=== PATIENT | female | born 1985 | race Caucasian/White ===

== ENCOUNTER 2021-12-27 06:47 | Day surgery (SDC) | payer OTHER, SELFPAY ==
[2021-12-24 13:48] LABS: Hematocrit 36.1 % (37-47); Hemoglobin 12.6 g/dL (12.0-15.0); Mean Corp Hgb Conc 34.9 g/dL (32-36); Mean Corpuscular Hgb 31.9 pg (27.0-32.0); Mean Corpuscular Volume 91.4 fL (81-99); Platelet Count 317 K/mm3 (150-450); RBC Distribution Width CV 12.2 % (11.6-14.6); RBC Distribution Width SD 41.1 fl (35.1-43.9); Red Blood Count 3.95 M/mm3 (4.2-5.4); White Blood Count 7.8 K/mm3 (4.4-11.0)
[2021-12-27] VITALS (8 sets, daily range): BP systolic 105–113; BP diastolic 65–71; PULSE 62–77; RESP 16–18; TEMP 36.1–37.2; O2SAT 94–100; BMI 32.5
[2021-12-27 07:22] LABS: Internal QC Validated? YES +Cl - CLEAR BKGD; Pregnancy, Urine Negative Negative
[2021-12-27] MEDS: Lactated Ringers 1,000 ML 15 ML IV (07:32)
--- NOTE | 2021-12-27 08:13 | PCM.PN.BLA ---
Progress Note I have re-examined the patient. There are no clinical changes since date of exam.
--- NOTE | 2021-12-27 08:30 | EMB_PTH ---
PATIENT: NU MORALES LOC[place] [facility] [place][id number] AGE/SX: 36/F ROOM: RE12/27/[address]: Dr. Cristina Koroma, MDDOB: 1985 BED: DIS: 12/27/2021 SPEC #: [id number] RECD: 12/27/21 12:25 STATUS: CECILIA NOEMI #: [id number] KAYLIE: 12/27/21 08:[address]: Cristina Koroma DEPT: SURGICAL PATHOLOGY RECD BY: Carmelita Ventura ENTERED: 12/27/21 13:15 SP TYPE: ENDOM BX/C TERRA DR: Dr. Kinsey Toribio, DO Tissues: Endometrium, NOS Procedures: Surgery Specimen Level IV HEADER OPERATION: Hysteroscopy, D & C Symphion, polypectomy PRE-OP DIAGNOSIS: Abnormal uterine bleeding, uterine polyp TISSUE SUBMITTED: Endometrial curettings and polyps MICROSCOPIC DIAGNOSIS Endometrial curettings and polyps: Secretory endometrium with glandular-stromal breakdown. Fragments of benign myometrium. AM/am 12/28/21 MICROSCOPIC DESCRIPTION Slides are reviewed. GROSS DESCRIPTION Received in formalin is one container labeled with the patient name and designated endometrial curettings and polyps. The specimen consists of multiple irregular fragments of light tavares soft tissue that in aggregate measure 5.5 x 3 x 0.2 cm. The specimen is totally submitted in two cassettes. / AM:toby 12/28/21 TC:5 CPT: 41879
--- NOTE | 2021-12-27 08:55 | PCM.OPRPT ---
Problems Associated Problem List Diagnoses (1) Abnormal uterine bleeding (AUB): (2) Endometrial polyp: Report of Operation Date of Procedure: 12/27/21 Pre-Operative Diagnosis: aub,endometrial polyp Post-Operative Diagnosis: same Surgery/Procedure Performed:: hysteroscopy, D&C, polypectomy Description of Surgical Findings:: Thickened endometrial tissue present. Polyp noted at the fundal aspect of the endometrium. Surgeon: Cristina Koroma processing technologist: None Type of Anesthesia: MAC Special Medications: none Specimen's removed: endometrial curettings, endometrial polyp Drains: none Estimated Blood Loss (mL): <5 Fluids Replaced: 400 Description of Procedure: informed consent was obtained the patient was taken the operating room she was placed in supine position. She was given anesthesia. She was then placed in the [facility] where she was prepped and draped in the normal sterile fashion. At this time the weighted speculum was placed in the posterior fornix of vagina. Single-tooth tenaculum was used to gently grasp the anterior lip the cervix. At this time the uterine cavity was sounded to approximately 9 cm. Gentle dilatation was performed once adequate dilatation of the cervix was achieved the hysteroscope using normal saline as a distention medium was placed. Thickened endometrial tissue appreciated, fundal polyp noted, tubal ostia visualized. Symphion resecting device used to obtain endometrial curettings and to perform polypectomy. Once completed the cavity appeared normal and cavity sanchez were intact. Tissue will be sent to pathology for evaluation. Tenaculum removed. Good hemostasis. Instrument, lap count correct x 2. Vaginal Sweep was negative. Procedure Start Time: 08:40 Procedure Stop Time: 08:54 Complications none Admit VTE Documentation VTE Present on Admission: Yes VTE Mechan Device Prophylaxis: SCD's VTE Pharm Prophylaxis ordered?: No Reason prophylaxis not ordered:: Procedure Not Indicated
--- NOTE | 2021-12-27 08:58 | EX.PCM.DISCH ---
Discharge Instructions Procedure D&C Diet Discharge Diet: No restrictions Activity May resume sexual activity in: 1 week Dressing / Incision Call your doctor if you observe: Fever of 101 or Higher, Inability to urinate, Using more than 1 pad per hour and Uncontrolled pain Follow Up Care Please Follow Up With: Cristina Koroma MD When: 1-2 weeks post OP if you need an appointment please call [phone] Test Results: Test results from this visit will be discussed in further detail at your follow-up appointment, if applicable. Discharge Plan Admission Attending Provider: Cristina Koroma Primary Care Provider: Kinsey Toribio Discharge Orders/Prescriptions Prescriptions: No Action NK RF: 0
[2021-12-27] MEDS: Ipratropium/Albuterol Sulfate 3 ML AMPUL.NEB INHALATION (09:50)
== END 2021-12-27 23:59 | disposition home or self-care (01) ==
LOC: SDC 06:49 → AC 06:49
PROVIDERS: PCP Family Medicine; Referring Provider Obstetrics & Gynecology; Visit Provider Obstetrics & Gynecology
PROC: 0UB98ZZ Excision of Uterus, Via Natural or Artificial Opening Endoscopic (ICD-10-PCS; CPT 58558; principal; 2021-12-27 08:15)
DX: N93.9 Abnormal uterine and vaginal bleeding, unspecified (principal); N84.0 Polyp of corpus uteri; Z90.49 Acquired absence of other specified parts of digestive tract; Z98.51 Tubal ligation status; Z20.822 Contact with and (suspected) exposure to COVID-19
CPT/HCPCS: 58558; 00952; 36415; 81025; 85027; 87426; 88305; 94640; C9803; J7120; J2405